=== PATIENT | female | born 1970 | race Caucasian/White ===

== ENCOUNTER 2017-08-17 00:39 | Inpatient (IN) | payer OTHER ==
[~2017-08-17] VITALS: Ht 152.4 cm; Wt 82.3 kg
[2017-08-17 04:50] LABS: BASOPHIL % 0.2 % (0-2); PLATELET COUNT 303 x10^3mcL (130-400); RED CELL DISTRIBUTION WIDTH 13.4 % (11.5-14.5)
[2017-08-17 04:55] LABS: CALCIUM 8.3 mg/dL (8.5-10.1); CARBON DIOXIDE 27.2 mmol/L (21-32); CHLORIDE SERUM 104 mmol/L (98-107); CREATININE SERUM 0.8 mg/dL (0.6-1.0); GFR1 > 60 mL/min; GLUCOSE SERUM 113 mg/dL (74-106); POTASSIUM SERUM 4.1 mmol/L (3.5-5.1); SODIUM SERUM 138 mmol/L (136-145)
[2017-08-17 04:58] LABS: UA SPECIFIC GRAVITY 1.015 (1.005-1.035); microscopic required? YES; urine erythrocyte 3+ (NEGATIVE)
[2017-08-17 05:04] LABS: ALKALINE PHOSPHATASE 67 U/L (46-116); ALT/SGPT 21 U/L (14-59); AST/SGOT 20 U/L (15-37); BILIRUBIN TOTAL 0.51 mg/dL (0.20-1.00); LIPASE 143 IU/L (73-393); TOTAL PROTEIN, SERUM 7.5 g/dL (6.4-8.2)
[2017-08-17 05:05] LABS: ALBUMIN 3.3 g/dL (3.4-5.0)
[2017-08-17 05:11] LABS: AMPHETAMINE QUAL UR NONE DETECTED (NEG <=1000)
[2017-08-17] MEDS ORDERED: GOOD SENSE OMEP20 MG PO (08:54)
[2017-08-17 09:36] VITALS: BP 202/73
[2017-08-17 09:45] LABS: CHOLESTEROL/HDL RATIO 4.3; PHOSPHOROUS 2.9 mg/dL (2.5-4.9)
[2017-08-17 09:51] LABS: FREE T4 1.1 ng/dL (0.76-1.46); FREE THYROXINE INDEX 3.3 ug/dL (1.4-4.5); T4(THYROXINE) 9.4 ug/dL (4.7-13.3)
[2017-08-17 10:08] LABS: T3 TOTAL 1.08 ng/mL
[2017-08-17 10:10] VITALS: BP 200/73
[2017-08-17 10:20] VITALS: BP 135/73
[2017-08-17 16:15] VITALS: BP 140/66
[2017-08-17 20:59] VITALS: BP 135/78
[2017-08-18 05:02] VITALS: BP 117/68
[2017-08-18 06:02] LABS: BASOPHIL % 0.4 % (0-2); PLATELET COUNT 243 x10^3mcL (130-400); RED CELL DISTRIBUTION WIDTH 13.4 % (11.5-14.5)
[2017-08-18 13:18] VITALS: BP 130/79
[2017-08-18 17:09] VITALS: BP 141/84
[2017-08-18 21:40] VITALS: BP 119/56
[2017-08-19 05:44] VITALS: BP 134/58
[2017-08-19 06:41] LABS: ALKALINE PHOSPHATASE 64 U/L (46-116); ALT/SGPT 20 U/L (14-59); AST/SGOT 15 U/L (15-37); BILIRUBIN TOTAL 0.6 mg/dL (0.20-1.00); CARBON DIOXIDE 24.3 mmol/L (21-32); CHLORIDE SERUM 108 mmol/L (98-107); CREATININE SERUM 0.7 mg/dL (0.6-1.0); GFR1 > 60 mL/min; GLUCOSE SERUM 93 mg/dL (74-106); POTASSIUM SERUM 4.1 mmol/L (3.5-5.1); SODIUM SERUM 140 mmol/L (136-145); TOTAL PROTEIN, SERUM 6.5 g/dL (6.4-8.2)
[2017-08-19 06:42] LABS: ALBUMIN 2.9 g/dL (3.4-5.0)
[2017-08-19 09:37] LABS: BASOPHIL % 0.4 % (0-2); PLATELET COUNT 247 x10^3mcL (130-400); RED CELL DISTRIBUTION WIDTH 13.6 % (11.5-14.5)
[2017-08-19 09:46] VITALS: BP 135/60
[2017-08-19 12:57] VITALS: BP 135/60
[2017-08-19 13:15] VITALS: BP 151/75
[2017-08-19] MEDS ORDERED: GOOD SENSE OMEP20 MG PO (13:27)
== END 2017-08-19 13:46 | disposition home or self-care (01) | DRG 243 ==
LOC: ED 00:39 → DU 08:27 → EDBD 08:27 → DU 09:30
PROVIDERS: Emergency Medicine; Family Medicine; ADMIT Family Medicine Sports Medicine
DX: K21.9 Gastro-esophageal reflux disease without esophagitis (principal); E44.1 Mild protein-calorie malnutrition; E78.5 Hyperlipidemia, unspecified; D64.9 Anemia, unspecified; R31.9 Hematuria, unspecified; R42 Dizziness and giddiness; Z68.35 Body mass index [BMI] 35.0-35.9, adult
CPT/HCPCS: 83880; 84439; 90658; J7030; J8597; Q0092